=== PATIENT | female | born 1945 | race Caucasian/White ===

== ENCOUNTER 2018-03-20 08:52 | Inpatient (IN) | payer MEDICARE ==
--- NOTE | 2018-03-19 23:00 | Pre-op HX & Phy Repo 2 SIG ---
DATE OF ADMISSION: 03/20/2018 ANTICIPATED DATE OF ADMISSION: 03/20/2018 HISTORY OF PRESENT ILLNESS: The patient is a 72-year-old female in fair but stable health with a malfunctioning Gandhi continent intestinal reservoir continent ileostomy. She has recent difficulty with intubation because her stoma has become very small with only a small slip. A month ago, she had bleeding for 2 days after struggling to get her 30-Serbian intubation catheter into the stoma but that resolved. The patient feels her stoma may have retracted partially. She is scheduled to undergo endoscopy of her Gandhi pouch followed by surgical stoma revision as warranted. PAST MEDICAL HISTORY: The patient has multiple medical problems including insulin-dependent diabetes mellitus, hypertension, atrial fibrillation chronic, coronary artery disease, hypothyroidism, sclerosing cholangitis. MEDICATIONS: Lantus insulin 17 to 24 units per day, Humulin R 3 to 15 units per day, Synthroid 175 micrograms, Prilosec 20 milligrams, atenolol 50 milligrams, low-dose aspirin 81 milligrams discontinued preop, iron 27 milligrams, Zetia 10 milligrams, nitroglycerin 0.4 milligrams sublingual as needed for chest pain, Ambien 10 milligrams, Lofibra 54 milligrams. ALLERGIES TO MEDICATIONS: Statins, quinine, surgical tape. PAST SURGICAL HISTORY: Tonsillectomy, thyroidectomy in 1964, proctocolectomy with Kelsey ileostomy in 1970, continent ileostomy in 1990, liver biopsy in 1995, double cardiac bypass graft in 1996, and many ERCP procedures for periodic stent replacements and removals. PHYSICAL EXAMINATION: The patient is arriving from out of town, will be examined upon arrival, and dictated separately. IMPRESSION: 1. Malfunctioning Gandhi continent ileostomy with stoma stenosis. 2. History of ulcerative colitis. 3. Status post proctocolectomy and ileostomy in 1970. 4. Status post Gandhi continent ileostomy in 1990. 5. Status post laparotomy with complex revision of Gandhi pouch stoma and access segment for redundant access segment in 2006. 6. Coronary artery disease. 7. Diabetes mellitus, insulin dependent. 8. Chronic atrial fibrillation. 9. Sclerosing cholangitis. DISCUSSION: I have had a full discussion with the patient regarding her condition and the plan for pouch endoscopy, which does not require any anesthesia or sedation. Hopefully, laparotomy can be avoided in view of her multiple comorbidities and the findings at the last surgery of extensive adhesions with the pouch densely adherent into the pelvis. Hopefully, whatever requires surgical revision to be done as a stoma revision superficially in the abdominal wall. I will have a full discussion in person with the patient when she arrives from out of town. Joss Ha M.D. DR: Pavan JOB#: [id number] CC:
[~2018-03-20] VITALS: Ht 165.1 cm; Wt 68.0 kg
[2018-03-20 09:30] VITALS: BP 143/62
[2018-03-20 10:58] LABS: BASOPHILS % (AUTO) 0.6 % (0.0-2.0); EOSINOPHILS % (AUTO) 1.5 % (0.0-3.0); HEMATOCRIT 33.4 % (37.0-47.0); LYMPHOCYTES % (AUTO) 11.7 % (20.0-45.0); MEAN CORPUSCULAR VOLUME 84 FL (80-99); MONOCYTES % (AUTO) 6.9 % (1.0-10.0); NEUTROPHILS % (AUTO) 79.2 % (45.0-75.0); PLATELET COUNT 271 K/UL (150-450); RED BLOOD COUNT 3.97 M/UL (4.20-5.40); RED CELL DISTRIBUTION WIDTH 11.4 % (11.6-14.8); WHITE BLOOD COUNT 9.9 K/UL (4.8-10.8)
[2018-03-20 11:09] LABS: ANION GAP 9 mmol/L (5-15); BLOOD UREA NITROGEN 16 mg/dL (7-18); CALCIUM 8.8 MG/DL (8.5-10.1); CARBON DIOXIDE 26 MMOL/L (21-32); CHLORIDE 95 MMOL/L (98-107); CREATININE 1.6 MG/DL (0.55-1.30); POTASSIUM 4.2 MMOL/L (3.5-5.1); SODIUM 130 MMOL/L (136-145)
[2018-03-20 11:13] LABS: INR 1.4 (0.9-1.1)
[2018-03-20 11:15] LABS: ALANINE AMINOTRANSFERASE 26 U/L (12-78); ALBUMIN 3.4 G/DL (3.4-5.0); ALBUMIN/GLOBULIN RATIO 0.9 (1.0-2.7); ALKALINE PHOSPHATASE 105 U/L (46-116); ASPARTATE AMINO TRANSFERASE 22 U/L (15-37); BILIRUBIN,TOTAL 0.8 MG/DL (0.2-1.0)
--- NOTE | 2018-03-20 11:22 | Diagnostic Imaging Report ---
Indication: Cough Technique: One view of the chest Comparison: none Findings: Lungs and pleural spaces are clear. There is evidence of prior median sternotomy. The heart is upper limits normal in size Impression: No acute process
[2018-03-20 12:00] VITALS: BP 132/69
[2018-03-20] MEDS ORDERED: Neomycin Sulfate 500mg Tab ORAL SCH (12:00)
[2018-03-20] MEDS ORDERED: Heparin 2000 units/Ns 1000ml INJ PRN (13:00)
[2018-03-20] MEDS ORDERED: Lidocaine 1% Plain 30 ml INJ PRN (13:00)
[2018-03-20] MEDS: NovoLOG Insulin Flexpen SUBQ SCH ×5 (13:06→21:41)
--- NOTE | 2018-03-20 13:23 | Pre-Procedure Note/Attestation ---
Pre-Procedure Note/Attestation Complete Prior to Procedure Planned Procedure: not applicable Procedure Narrative: Gandhi continent ileostomy pouch endoscopy Indications for Procedure Pre-Operative Diagnosis: malfunctioning Gandhi pouch with stoma stenosis Attestation I attest that I discussed the nature of the procedure; its benefits; risks and complications; and alternatives (and the risks and benefits of such alternatives ), prior to the procedure, with the patient (or the patient's legal customer support representative). I attest that, if there was a reasonable possibility of needing a blood transfusion, the patient (or the patient's legal customer support representative) was given the [facility] standardized written summary, pursuant to the Lai Fiona Blood Safety Act ([place] Health and Safety Code # 1645, as amended). I attest that I re-evaluated the patient just prior to the surgery and that there has been no change in the patient's H&P, except as documented below: none Joss Ha MD Mar 20, 2018 13:23
[2018-03-20 13:46] LABS: APPEARANCE,URINE CLEAR; BILIRUBIN, URINE NEGATIVE (NEGATIVE); COLOR,URINE PALE YELLOW; GLUCOSE, URINE (UA) 2+ (NEGATIVE); KETONES,URINE NEGATIVE (NEGATIVE); LEUKOCYTE ESTERASE ,URINE NEGATIVE (NEGATIVE); NITRITE,URINE NEGATIVE (NEGATIVE); PH,URINE 6 (4.5-8.0); PROTEIN,URINE 1+ (NEGATIVE); UROBILINOGEN,URINE NORMAL MG/DL (0.0-1.0)
--- NOTE | 2018-03-20 13:59 | Brief Operative Note ---
Immediate Post Operative Note Operative Note Pre-op Diagnosis: malfunctioning Gandhi pouch with stoma stenosis Procedure: Gandhi continent ileostomy pouch endoscopy Post-op Diagnosis: Angulation of access segment Post-op Diagnosis: same as pre-op plus - no stoma stenosis, access segment angulation Findings: consistent w/pre-op dx studies Surgeon: carson Anesthesiologist: none Anesthesia: other - none Specimen: none Complications: none Condition: stable Fluids: none Estimated Blood Loss: none Drains: other - 28 Ornelas to BCIR Implant(s) used?: No Joss Ha MD Mar 20, 2018 13:59
--- NOTE | 2018-03-20 14:06 | General Progress Note ---
Progress Note Progress Note H&P dictated. Patient having occasional difficulty intubating her Gandhi Pouch with one episode bleeding one month ago. Abdomen quite distended but not tympanitic BCIR pouch stoma not stenotic, well formed. Peristoma skin chronic changes wide area probably vascular Pouch endoscopy reveals a mild angulation at 7-8cm deep to the stoma with normal pouch and well formed valve WBC 9900 Hgb 11 Na 130 BUN 16 Cr 1.6 Albumin 3.4 INR 1.4 Imp. Hyponatremia with mild dehydration Malfunctioning Gandhi continent ileostomy with difficulty intubating Abdominal distention Chronic peristomal skin changes Likely Vitamin K deficiency with prolonged INR Plan; IV fluids with NS Continuous drainage of Gandhi pouch Vit. K 10mg IV May need CT scan to evaluate abdominal distention f/u labs cancel surgery scheduled for tomorrow Joss Almaraz MD Mar 20, 2018 14:06
[2018-03-20] MEDS ORDERED: PHYTONADIONE IVPB ONE (15:30)
[2018-03-20] MEDS ORDERED: D5W IVPB ONE (15:30)
[2018-03-20] MEDS: NS w/KCl 20mEq 1,000 ML IV SCH (15:33)
[2018-03-20 16:00] VITALS: BP 118/61
--- NOTE | 2018-03-20 16:45 | Procedure Note ---
DATE OF PROCEDURE: 03/20/2018 ENDOSCOPIST: Joss Ha M.D. ANESTHESIA: None. SEDATION: None. PRE-ENDOSCOPIC DIAGNOSES: 1. Malfunctioning Gandhi continent ileostomy with difficulty with intubation and prior episode of bleeding. 2. History of ulcerative colitis. 3. Status post multiple abdominal operations. 3.1. Proctocolectomy and ileostomy in 1970. 3.2. Gandhi continent ileostomy in 1990. 3.3. Laparotomy with complex revision of Gandhi pouch stoma and access segment for redundant access segment in 2006. 3.4. Chronic peristomal skin changes. POST-ENDOSCOPIC DIAGNOSES: 1. Malfunctioning Gandhi continent ileostomy with difficulty with intubation and prior episode of bleeding. 2. History of ulcerative colitis. 3. Status post multiple abdominal operations. 3.1. Proctocolectomy and ileostomy in 1970. 3.2. Gandhi continent ileostomy in 1990. 3.3. Laparotomy with complex revision of Gandhi pouch stoma and access segment for redundant access segment in 2006. 3.4. Chronic peristomal skin changes. ENDOSCOPY PERFORMED: Gandhi continent ileostomy pouch endoscopy. FINDINGS: Mild angulation at 7 to 8 cm deep to the stoma with a distance to the tip of the valve approximately 10 cm. The pouch and valve appeared normal. There are chronic peristomal skin changes likely vascular in nature. DESCRIPTION OF PROCEDURE: The patient was positioned supine in the GI lab and first examined. She is 5 feet 5 inches, 150 pounds. HEENT within normal limits. Lungs clear. Heart, chronic atrial fibrillation. Breasts without masses. Abdomen is soft, but quite distended or protuberant, but not tympanitic, well-healed surgical scars. Stoma of the Gandhi continent ileostomy pouch is low in the right lower quadrant and has no stenosis. There is a wide area circumferentially of peristomal skin changes with some tenderness consistent with chronic vascular changes around the stoma area. Pelvic per primary care physician. Rectal, status post proctectomy. Extremities without edema. Neurologic, physiologic. I first inserted a 28-Kittitian Ornelas catheter into the stoma, but met resistance and removed it and was able to insert a 26-Kittitian Ornelas. Once I waited a few seconds at the point of resistance for spasm to resolve, the catheter entered readily. The pouch was lavaged clear. Using a GIF-P140 endoscope, the stoma was entered under direct vision. There was sign of catheter trauma near the mild angulation, but the pouch could be readily entered. The pouch was distensible and completely normal mucosa throughout retroflexed views revealed a circumferentially well-formed nipple valve. The patient is not having any incontinence. She intubates four times a day. Withdrawal views confirmed the above findings. After the procedure, I was fairly readily able to insert a 28-Kittitian Ornelas catheter into the pouch and connected to gravity drainage bag and secured it with tape and placed a dry dressing over the stoma. The patient tolerated the procedure well, and based on the endoscopy, there is no need for surgical revision at this time. Joss Ha M.D. DR: TRISHA JOB#: [id number] CC:
[2018-03-20] MEDS ORDERED: ASPIRIN81 M3 PO (16:49)
[2018-03-20] MEDS ORDERED: HUMULIN R100 UNIT/1 SUBQ (16:49)
[2018-03-20] MEDS ORDERED: CENTRUM SILVER1 EAC4 PO (16:49)
[2018-03-20] MEDS ORDERED: REGLAN10 MG ORAL (16:49)
[2018-03-20] MEDS ORDERED: ZETIA10 MG ORAL (16:49)
[2018-03-20] MEDS ORDERED: AMBIEN10 M1 ORAL (16:49)
[2018-03-20] MEDS ORDERED: FENOFIBRATE54 MG ORAL (16:49)
[2018-03-20] MEDS ORDERED: ATENOLOL50 MG ORAL (16:49)
[2018-03-20] MEDS ORDERED: IRON325 M1 PO (16:49)
[2018-03-20] MEDS ORDERED: LANTUS5 UNITS SUBQ (16:49)
[2018-03-20] MEDS ORDERED: SYNTHROID200 MCG ORAL (16:49)
[2018-03-20] MEDS ORDERED: OMEPRAZOLE20 M2 ORAL (16:49)
[2018-03-20] MEDS ORDERED: DiphenhydrAMINE 50mg/ml Inj IVP ONE (17:30)
[2018-03-20] MEDS ORDERED: D5 1/2NS w/KCl 20mEq 1,000 ML IV SCH (18:00)
[2018-03-20] MEDS ORDERED: NS w/KCl 20mEq 1,000 ML IV SCH (18:00)
[2018-03-20] MEDS ORDERED: Dyna-Hex 2% Top Sol 2oz TOPIC SCH (20:00)
[2018-03-20 20:22] VITALS: BP 151/57
[2018-03-20] MEDS ORDERED: Levemir Flexpen SUBQ SCH (21:00)
[2018-03-20] MEDS: Zolpidem 5mg tab ORAL PRN (21:48)
[2018-03-21] MEDS ORDERED: Ampicillin/Sulbactam Sod 3 GM in NS 110 ML IVPB SCH ×2
[2018-03-21 00:04] VITALS: BP 137/62
--- NOTE | 2018-03-21 02:00 | Consultation ---
DATE OF CONSULTATION: 03/20/2018 ENDOCRINOLOGY CONSULTATION CONSULTING PHYSICIAN: Eleazar Camarena M.D. REFERRING PHYSICIAN: Joss Ha M.D. REASON FOR CONSULTATION: Diabetes management. HISTORY OF PRESENT ILLNESS: The patient is a 72-year-old female with history of insulin-dependent diabetes. She was electively admitted to the hospital due to recent difficulty with intubation of her stoma which has become very small and only a small slit. The patient has history of malfunctioning Gandhi continent intestinal reservoir continent ileostomy. The patient is scheduled to have a CT of the abdomen tomorrow. She is on a clear liquid diet today and she is on insulin regimen as an outpatient. MEDICATION: Medications as an outpatient: 1. Lantus insulin 17 to 24 units at night. 2. Regular insulin 3 to 15 units per day. 3. Synthroid 225 mcg daily. 4. Prilosec. 5. Atenolol 50 mg daily. 6. Enteric-coated aspirin 81 mg daily, which is on hold. 7. Iron. 8. Zetia 10 mg daily. 9. Nitroglycerin sublingual as needed for chest pain. 10. Ambien 10 mg at bedtime. 11. Lofibra 54 mg at bedtime. PAST MEDICAL HISTORY: 1. Colitis. 2. Sclerosing cholangitis. 3. Insulin-dependent diabetes. 4. Hypertension. 5. Congestive heart failure. 6. Atrial fibrillation, chronic. 7. Coronary artery disease. PAST SURGICAL HISTORY: 1. Tonsillectomy. 2. Thyroidectomy in 1964. 3. Proctocolectomy with loop ileostomy in 1970. 4. Constant ileostomy in 1990. 5. Liver biopsy in 1995. 6. Coronary artery bypass graft in 1996. 7. ERCP procedures with stent placement and removals. FAMILY HISTORY: Dad was diabetic. SOCIAL HISTORY: No smoking, alcohol, or drug use. She lives in [place]. REVIEW OF SYSTEMS: As per history of present illness. PHYSICAL EXAMINATION: GENERAL: She is awake and alert. VITAL SIGNS: Blood pressure is 118/61, pulse 61, temperature 97.6, and respiratory rate of 20. HEENT: Pupils are equal and reactive to light. Sclerae are anicteric. NECK: No JVD. No thyromegaly. No bruit. LUNGS: Clear. HEART: Regular rate and rhythm. ABDOMEN: Positive bowel sounds. Soft. EXTREMITIES: No clubbing, cyanosis, or edema. LABORATORY VALUES: Sodium 130, potassium 4.2, chloride 95, bicarbonate 26, BUN 16, creatinine 1.6, glucose 264, A1c of 7.3. DIAGNOSES: 1. Diabetes, out of control. 2. Hypothyroidism. PLAN: 1. Start Levemir 18 units at bedtime. 2. Start NovoLog 6 units before each meal. 3. Blood glucose monitoring before meals and at bedtime. 4. NovoLog sliding scale coverage before meals and at bedtime. 5. Check TSH and free T4. 6. Adjust thyroid hormone dosage if indicated. 7. I will follow the patient during the hospital stay. Thank you, Dr. Ha, for the courtesy of this consultation. Eleazar Camarena M.D. DR: Nate JOB#: [id number] CC: ALEX
[2018-03-21 04:00] VITALS: BP 132/69
[2018-03-21] MEDS: NS w/KCl 20mEq 1,000 ML IV SCH ×2 (05:46→17:26)
[2018-03-21] MEDS: Levothyroxine 125mcg tab ORAL SCH (06:15)
[2018-03-21] MEDS: NovoLOG Insulin Flexpen SUBQ SCH ×7 (06:19→21:09)
--- NOTE | 2018-03-21 07:25 | General Progress Note ---
Assessment/Plan Problem List: (1) Hypothyroidism ICD Codes: E03.9 - Hypothyroidism, unspecified SNOMED: 50696328 (2) Diabetes mellitus out of control ICD Codes: E11.65 - Type 2 diabetes mellitus with hyperglycemia SNOMED: 12378250, 514971322 Assessment/Plan reduce Levemir to 12 units qhs reduce Novolog to 4 units ac tid + NISS TSH is at target - continue Levothyroxine 225 mcg daily Subjective Allergies: Coded Allergies: ROSUVASTATIN (Verified Allergy, Severe, 03/20/18) Nausea and vomiting [id number] REDUCTASE INHIBITOR (Verified Allergy, Intermediate, ) Nause vomiting, dehydration QUININE (Verified Allergy, Unknown, 03/20/18) Vomiting & dehydration Uncoded Allergies: surgical Tape (Allergy, Severe, Itching, 03/20/18) Sever itching & blisters zostril (Allergy, Intermediate, 03/20/18) nausea Vomiting All Systems: reviewed and negative except above Subjective hypoglycemia this morning Objective Last 24 Hour Vital Signs Date Time Temp Pulse Resp B/P (MAP) Pulse Ox O2 Delivery O2 Flow Rate FiO2 03/21/18 04:00 98.3 70 18 132/69 97 Room Air 98.3 03/21/18 00:04 98.4 76 17 137/62 97 98.4 03/21/18 00:00 97 Room Air 03/20/18 20:22 98.6 73 18 151/57 96 98.6 03/20/18 20:16 62 118/61 03/20/18 20:00 96 Room Air 03/20/18 16:00 97.6 62 20 118/61 97 Room Air 97.6 03/20/18 12:00 98.2 74 20 132/69 97 Room Air 98.2 03/20/18 09:30 97.7 71 20 143/62 97 Room Air 97.7 Intake and Output 03/20/18 03/21/18 19:00 07:00 Intake Total 875 ml 750 ml Output Total 1285 ml 1170 ml Balance -410 ml -420 ml Intake Oral 800 ml IV Total 75 ml 750 ml Output Urine Total 900 ml 900 ml Other 385 ml 270 ml Laboratory Tests 03/20/18 10:35: White Blood Count 9.9, Red Blood Count 3.97L, Hemoglobin 11.0L, Hematocrit 33.4L , Mean Corpuscular Volume 84, Mean Corpuscular Hemoglobin 27.7, Mean Corpuscular Hemoglobin Concent 32.9, Red Cell Distribution Width 11.4L, Platelet Count 271, Mean Platelet Volume 6.3L, Neutrophils (%) (Auto) 79.2H, Lymphocytes (%) (Auto) 11.7L, Monocytes (%) (Auto) 6.9, Eosinophils (%) (Auto) 1.5, Basophils (%) (Auto) 0.6, Prothrombin Time 14.3H, Prothromb Time International Ratio 1.4H, Activated Partial Thromboplast Time 44H, Sodium Level 130L, Potassium Level 4.2, Chloride Level 95L, Carbon Dioxide Level 26, Anion Gap 9, Blood Urea Nitrogen 16, Creatinine 1.6H, Estimat Glomerular Filtration Rate 31.8, Glucose Level 264H, Hemoglobin A1c 7.3H, Calcium Level 8.8, Total Bilirubin 0.8, Aspartate Amino Transf (AST/SGOT) 22, Alanine Aminotransferase ( ALT/SGPT) 26, Alkaline Phosphatase 105, Total Protein 7.4, Albumin 3.4, Globulin 4.0, Albumin/Globulin Ratio 0.9L, Thyroid Stimulating Hormone (TSH) 0.674, Free Thyroxine 1.45 03/20/18 13:15: Urine Color Pale yellow, Urine Appearance Clear, Urine pH 6, Urine Specific [place] 1.010, Urine Protein 1+H, Urine Glucose (UA) 2+H, Urine Ketones Negative , Urine Occult Blood Negative, Urine Nitrite Negative, Urine Bilirubin Negative , Urine Urobilinogen Normal, Urine Leukocyte Esterase Negative, Urine RBC 0-2, Urine WBC 0-2, Urine Squamous Epithelial Cells Occasional, Urine Bacteria Occasional Height (Feet): 5 Height (Inches): 5.00 Weight (Pounds): 150 General Appearance: no apparent distress Neck: normal alignment Cardiovascular: normal rate Respiratory/Chest: lungs clear Abdomen: normal bowel sounds Objective Current Medications Medications (Trade) Dose Ordered Sig/Konstantin Route PRN Reason Start Time Stop Time Status Last Admin Dose Admin Atenolol (Tenormin) 50 mg Q12HR ORAL 03/20/18 21:00 04/19/18 17:59 03/20/18 20:16 Dextrose (Dextrose 50%) 25 ml STAT PRN IV Hypoglycemia 03/20/18 10:45 04/19/18 10:44 Dextrose (Dextrose 50%) 50 ml STAT PRN IV Hypoglycemia 03/20/18 10:45 04/19/18 10:44 Insulin Aspart (NovoLOG) BEFORE MEALS AND HS SUBQ 03/20/18 11:30 04/19/18 11:29 03/20/18 21:41 Insulin Aspart (NovoLOG) 6 units NOVOTIAC SUBQ 03/20/18 11:50 04/19/18 11:49 03/20/18 13:07 Insulin Detemir (Levemir) 18 units BEDTIME SUBQ 03/20/18 21:00 04/19/18 20:59 03/20/18 21:40 Levothyroxine Sodium (Synthroid) 100 mcg DAILY@0630 ORAL 03/21/18 06:30 04/20/18 06:29 03/21/18 06:15 Levothyroxine Sodium (Synthroid) 125 mcg DAILY@0630 ORAL 03/21/18 06:30 04/20/18 06:29 03/21/18 06:15 Metoclopramide HCl (Reglan) 10 mg Q12HR ORAL 03/20/18 21:00 04/19/18 17:59 03/20/18 20:16 Ondansetron HCl (Zofran) 4 mg Q4H PRN IVP Nausea & Vomiting 03/20/18 10:30 04/19/18 10:29 Pantoprazole (Protonix) 40 mg Q12HR ORAL 03/20/18 21:00 04/19/18 17:59 03/20/18 20:16 Sodium Chloride 1,000 ml @ 75 mls/hr [id number] IV 03/20/18 15:00 04/19/18 14:59 03/21/18 05:46 Zolpidem Tartrate (Ambien) 5 mg HSPRN PRN ORAL Insomnia 03/20/18 17:00 03/27/18 16:59 03/20/18 21:48 Item Value Date Time Bedside Blood Glucose 86 mg/dl 03/21/18 0645 Bedside Blood Glucose 159 mg/dl H 03/20/18 2143 Bedside Blood Glucose 105 mg/dl 03/20/18 1730 Bedside Blood Glucose 265 mg/dl H 03/20/18 1307 Eleazar Camarena MD Mar 21, 2018 07:25
[2018-03-21 07:52] LABS: BASOPHILS % (AUTO) 1.5 % (0.0-2.0); EOSINOPHILS % (AUTO) 5.5 % (0.0-3.0); HEMATOCRIT 32.3 % (37.0-47.0); HEMOGLOBIN 11.2 G/DL (12.0-16.0); LYMPHOCYTES % (AUTO) 14.2 % (20.0-45.0); MEAN CORPUSCULAR VOLUME 84 FL (80-99); MONOCYTES % (AUTO) 7.5 % (1.0-10.0); NEUTROPHILS % (AUTO) 71.2 % (45.0-75.0); PLATELET COUNT 253 K/UL (150-450); RED BLOOD COUNT 3.86 M/UL (4.20-5.40); RED CELL DISTRIBUTION WIDTH 11.5 % (11.6-14.8); WHITE BLOOD COUNT 6.7 K/UL (4.8-10.8)
[2018-03-21 08:00] VITALS: BP 130/71
[2018-03-21 08:15] LABS: INR 1.3 (0.9-1.1)
--- NOTE | 2018-03-21 08:39 | General Progress Note ---
Progress Note Progress Note AVSS Patient feels okay on clear liquid diet Abdomen still distended vs. protruberant, soft, non-tender Urine 1800 BCIR ileo 655 WBC 6700 Hgb 11.2 CMP still pending Imp. Abdominal distention ? etiology Hyponatremia - f/u labs still pending Plan: STAT CT scan of abdomen and pelvis with oral and IV contrast Joss Ha MD Mar 21, 2018 08:39
[2018-03-21 08:51] LABS: ALANINE AMINOTRANSFERASE 24 U/L (12-78); ALBUMIN 3.1 G/DL (3.4-5.0); ALBUMIN/GLOBULIN RATIO 0.8 (1.0-2.7); ALKALINE PHOSPHATASE 100 U/L (46-116); ANION GAP 11 mmol/L (5-15); ASPARTATE AMINO TRANSFERASE 24 U/L (15-37); BILIRUBIN,TOTAL 0.7 MG/DL (0.2-1.0); BLOOD UREA NITROGEN 9 mg/dL (7-18); CALCIUM 8.7 MG/DL (8.5-10.1); CARBON DIOXIDE 23 MMOL/L (21-32); CHLORIDE 101 MMOL/L (98-107); CREATININE 1.3 MG/DL (0.55-1.30); POTASSIUM 3.8 MMOL/L (3.5-5.1); SODIUM 134 MMOL/L (136-145)
[2018-03-21 12:00] VITALS: BP 129/75
--- NOTE | 2018-03-21 12:40 | Diagnostic Imaging Report ---
Indication: Abdominal pain Technique: Continuous helical transaxial imaging of the abdomen and pelvis was obtained from the lung bases to the pubic symphysis during intravenous contrast administration. Coronal 2-D reformats were also obtained. Study obtained in a Siemens sensation [address] Automatic Exposure Control was utilized. Total Dose length Product (DLP): 713.[address] Dose Index Volume (CTDIvol): 13.68 mGy Comparison: None Findings: There is mild basilar atelectasis demonstrated. Aorta is mildly calcified. The liver and spleen are unremarkable. Gallbladder is distended. There is slight nodularity of the wall which may be partially calcified. There is no hydronephrosis. There is a small right renal cyst. There is a punctate calcification in the left kidney consistent with a nonobstructive stone. Pancreas and adrenal glands are unremarkable. There is a catheter entering the right lower quadrant of the abdomen consistent with a continent ileostomy. There is contrast material within the ileostomy as well as the catheter lumen. There is no evidence of bowel obstruction. No free air or free fluid identified. No inflammatory changes identified. Total colectomy noted. Urinary bladder is unremarkable. The uterus is atrophic but identified. Just posterior to the uterus there is a presacral well-circumscribed cystic lesion measuring 6.5 x 4.3 x 5.0 cm. This is most likely an ovarian cyst. IMPRESSION: Continent ileostomy noted. No complications such as bowel obstruction or leak identified. 6.5 x 4.3 x 5 cm well-circumscribed cyst posterior pelvic region most likely ovarian cyst. Comparison with prior studies is suggested with possible. Sonographic correlation suggested. Atherosclerotic disease. Slight nodularity of the gallbladder wall with suggestion of a calcification. Findings probably indicative of cholesterolosis of the gallbladder. Basilar atelectasis. Small right renal cyst. Tiny nonobstructive stone in the left kidney. The CT scanner at [facility] is accredited by the [employer] and the scans are performed using dose optimization techniques as appropriate to a performed exam including Automatic Exposure control.
[2018-03-21 16:00] VITALS: BP 131/70
[2018-03-21 20:00] VITALS: BP 139/59
[2018-03-21] MEDS ORDERED: Levemir Flexpen SUBQ SCH (21:00)
[2018-03-21] MEDS: Zolpidem 5mg tab ORAL PRN (21:49)
[2018-03-22] VITALS: BP 122/54
[2018-03-22 03:49] VITALS: BP 115/51
[2018-03-22 05:10] LABS: BASOPHILS % (AUTO) 0.9 % (0.0-2.0); EOSINOPHILS % (AUTO) 3.6 % (0.0-3.0); HEMATOCRIT 31.5 % (37.0-47.0); HEMOGLOBIN 10.8 G/DL (12.0-16.0); LYMPHOCYTES % (AUTO) 10.5 % (20.0-45.0); MEAN CORPUSCULAR VOLUME 83 FL (80-99); MONOCYTES % (AUTO) 8.3 % (1.0-10.0); NEUTROPHILS % (AUTO) 76.7 % (45.0-75.0); PLATELET COUNT 239 K/UL (150-450); RED BLOOD COUNT 3.77 M/UL (4.20-5.40); RED CELL DISTRIBUTION WIDTH 11.4 % (11.6-14.8); WHITE BLOOD COUNT 8.8 K/UL (4.8-10.8)
[2018-03-22 05:48] LABS: ANION GAP 8 mmol/L (5-15); BLOOD UREA NITROGEN 11 mg/dL (7-18); CALCIUM 8.8 MG/DL (8.5-10.1); CARBON DIOXIDE 24 MMOL/L (21-32); CHLORIDE 100 MMOL/L (98-107); CREATININE 1.4 MG/DL (0.55-1.30); POTASSIUM 3.8 MMOL/L (3.5-5.1); SODIUM 132 MMOL/L (136-145)
[2018-03-22] MEDS: Levothyroxine 125mcg tab ORAL SCH (05:58)
[2018-03-22] MEDS: NovoLOG Insulin Flexpen SUBQ SCH ×7 (06:00→21:55)
[2018-03-22] MEDS: NS w/KCl 20mEq 1,000 ML IV SCH (06:02)
--- NOTE | 2018-03-22 06:49 | General Progress Note ---
Progress Note Progress Note Doing well with BCIR diet and indwelling BCIR catheter. Abdomen soft Na still low 132 BUN 11 Cr 1.4 Imp. Improving Plan: Begin RN supervised BCIR self-intubations q3h am to hs and prn continue NS IV to correct low sodium level Joss Ha MD Mar 22, 2018 06:49
[2018-03-22 08:00] VITALS: BP 132/64
--- NOTE | 2018-03-22 09:04 | General Progress Note ---
Assessment/Plan Problem List: (1) Hypothyroidism ICD Codes: E03.9 - Hypothyroidism, unspecified SNOMED: 33103652 (2) Diabetes mellitus out of control ICD Codes: E11.65 - Type 2 diabetes mellitus with hyperglycemia SNOMED: 41643287, [id number] Assessment/Plan reduce Levemir to 8 units qhs reduce Novolog to 4 units ac tid + NISS TSH is at target - continue Levothyroxine 225 mcg daily Subjective Allergies: Coded Allergies: ROSUVASTATIN (Verified Allergy, Severe, 03/20/18) Nausea and vomiting [id number] REDUCTASE INHIBITOR (Verified Allergy, Intermediate, ) Nause vomiting, dehydration QUININE (Verified Allergy, Unknown, 03/20/18) Vomiting & dehydration Uncoded Allergies: surgical Tape (Allergy, Severe, Itching, 03/20/18) Sever itching & blisters zostril (Allergy, Intermediate, 03/20/18) nausea Vomiting All Systems: reviewed and negative except above Subjective hypoglycemia repeated this morning Objective Last 24 Hour Vital Signs Date Time Temp Pulse Resp B/P (MAP) Pulse Ox O2 Delivery O2 Flow Rate FiO2 03/22/18 08:10 80 132/64 03/22/18 08:00 97.5 80 16 132/64 100 Room Air 97.5 03/22/18 03:49 97.2 64 19 115/51 97 Room Air 97.2 03/22/18 00:00 97.9 67 19 122/54 97 Room Air 97.9 03/21/18 21:04 69 139/59 03/21/18 20:00 98.1 69 19 139/59 97 Room Air 98.1 03/21/18 16:00 98.0 76 20 131/70 97 Room Air 98.0 03/21/18 12:00 98.2 73 18 129/75 96 Room Air 98.2 03/21/18 09:25 73 130/71 Intake and Output 03/21/18 03/22/18 19:00 07:00 Intake Total 1675 ml 675 ml Output Total 3345 ml 2020 ml Balance -1670 ml -1345 ml Intake Oral 1600 ml IV Total 75 ml 675 ml Output Urine Total 1750 ml 1500 ml Other 1595 ml 520 ml Laboratory Tests 03/22/18 05:00: White Blood Count 8.8, Red Blood Count 3.77L, Hemoglobin 10.8L, Hematocrit 31.5L , Mean Corpuscular Volume 83, Mean Corpuscular Hemoglobin 28.5, Mean Corpuscular Hemoglobin Concent 34.2, Red Cell Distribution Width 11.4L, Platelet Count 239, Mean Platelet Volume 6.0L, Neutrophils (%) (Auto) 76.7H, Lymphocytes (%) (Auto) 10.5L, Monocytes (%) (Auto) 8.3, Eosinophils (%) (Auto) 3.6H, Basophils (%) (Auto) 0.9, Sodium Level 132L, Potassium Level 3.8, Chloride Level 100, Carbon Dioxide Level 24, Anion Gap 8, Blood Urea Nitrogen 11 , Creatinine 1.4H, Estimat Glomerular Filtration Rate 37.2, Glucose Level 51L, Calcium Level 8.8 Height (Feet): 5 Height (Inches): 5.00 Weight (Pounds): 150 General Appearance: no apparent distress Neck: normal alignment Cardiovascular: normal rate Respiratory/Chest: chest wall non-tender Abdomen: normal bowel sounds Pelvis: normal external exam Objective Current Medications Medications (Trade) Dose Ordered Sig/Konstantin Route PRN Reason Start Time Stop Time Status Last Admin Dose Admin Atenolol (Tenormin) 50 mg Q12HR ORAL 03/20/18 21:00 04/19/18 17:59 03/20/18 20:16 Dextrose (Dextrose 50%) 25 ml STAT PRN IV Hypoglycemia 03/20/18 10:45 04/19/18 10:44 Dextrose (Dextrose 50%) 50 ml STAT PRN IV Hypoglycemia 03/20/18 10:45 04/19/18 10:44 Insulin Aspart (NovoLOG) BEFORE MEALS AND HS SUBQ 03/20/18 11:30 04/19/18 11:29 03/20/18 21:41 Insulin Aspart (NovoLOG) 6 units NOVOTIAC SUBQ 03/20/18 11:50 04/19/18 11:49 03/20/18 13:07 Insulin Detemir (Levemir) 18 units BEDTIME SUBQ 03/20/18 21:00 04/19/18 20:59 03/20/18 21:40 Levothyroxine Sodium (Synthroid) 100 mcg DAILY@0630 ORAL 03/21/18 06:30 04/20/18 06:29 03/21/18 06:15 Levothyroxine Sodium (Synthroid) 125 mcg DAILY@0630 ORAL 03/21/18 06:30 04/20/18 06:29 03/21/18 06:15 Metoclopramide HCl (Reglan) 10 mg Q12HR ORAL 03/20/18 21:00 04/19/18 17:59 03/20/18 20:16 Ondansetron HCl (Zofran) 4 mg Q4H PRN IVP Nausea & Vomiting 03/20/18 10:30 04/19/18 10:29 Pantoprazole (Protonix) 40 mg Q12HR ORAL 03/20/18 21:00 04/19/18 17:59 03/20/18 20:16 Sodium Chloride 1,000 ml @ 75 mls/hr [id number] IV 03/20/18 15:00 04/19/18 14:59 03/21/18 05:46 Zolpidem Tartrate (Ambien) 5 mg HSPRN PRN ORAL Insomnia 03/20/18 17:00 03/27/18 16:59 03/20/18 21:48 Item Value Date Time Bedside Blood Glucose 86 mg/dl 03/21/18 0645 Bedside Blood Glucose 159 mg/dl H 03/20/18 2143 Bedside Blood Glucose 105 mg/dl 03/20/18 1730 Bedside Blood Glucose 265 mg/dl H 03/20/18 1307 Eleazar Camarena MD Mar 22, 2018 09:04
[2018-03-22 11:31] VITALS: BP 159/70
[2018-03-22 16:00] VITALS: BP 129/62
[2018-03-22] MEDS ORDERED: metroNIDAZOLE 500mg tab ORAL SCH (16:12)
--- NOTE | 2018-03-22 16:16 | General Progress Note ---
Progress Note Progress Note Has intubated twice without difficulty but large volume watery output and unable to wait 3 hours Imp. Pouchitis Plan; Flagyl 500mg po STAT then 250mg po TID including a dose tonight Increase IV fluids Joss Ha MD Mar 22, 2018 16:16
[2018-03-22] MEDS ORDERED: metroNIDAZOLE 250mg tab ORAL SCH ×2 (18:00→22:00)
[2018-03-22 20:00] VITALS: BP 137/58
[2018-03-22] MEDS ORDERED: Levemir Flexpen SUBQ SCH (21:00)
[2018-03-22] MEDS: Zolpidem 5mg tab ORAL PRN (21:50)
[2018-03-23] VITALS: BP 109/61
[2018-03-23] MEDS: NS w/KCl 20mEq 1,000 ML IV SCH ×2 (03:00→15:00)
[2018-03-23 04:00] VITALS: BP 141/70
[2018-03-23 05:35] LABS: BASOPHILS % (AUTO) 0.9 % (0.0-2.0); EOSINOPHILS % (AUTO) 3.5 % (0.0-3.0); HEMATOCRIT 31.7 % (37.0-47.0); HEMOGLOBIN 10.4 G/DL (12.0-16.0); LYMPHOCYTES % (AUTO) 11.1 % (20.0-45.0); MEAN CORPUSCULAR VOLUME 85 FL (80-99); MONOCYTES % (AUTO) 7.5 % (1.0-10.0); NEUTROPHILS % (AUTO) 77.1 % (45.0-75.0); PLATELET COUNT 247 K/UL (150-450); RED BLOOD COUNT 3.75 M/UL (4.20-5.40); WHITE BLOOD COUNT 11.8 K/UL (4.8-10.8)
[2018-03-23] MEDS: Levothyroxine 125mcg tab ORAL SCH (06:01)
[2018-03-23 06:03] LABS: ANION GAP 9 mmol/L (5-15); BLOOD UREA NITROGEN 12 mg/dL (7-18); CARBON DIOXIDE 22 MMOL/L (21-32); CHLORIDE 102 MMOL/L (98-107); CREATININE 1.4 MG/DL (0.55-1.30); POTASSIUM 4.5 MMOL/L (3.5-5.1); SODIUM 133 MMOL/L (136-145)
[2018-03-23] MEDS: NovoLOG Insulin Flexpen SUBQ SCH ×7 (06:03→21:31)
[2018-03-23 08:00] VITALS: BP 119/76
--- NOTE | 2018-03-23 08:11 | General Progress Note ---
Progress Note Progress Note AVSS Continues to intubate well but having high volume watery effluent from Kock pouch, and must intubate q3h even during the night Abdomen more distended and tympanic WBC 11,800 hgb 10.4 Na up 133 Imp. Pouchitis with high volume ileostomy output Plan; Add Cipro 500mg po q12h to Flagyl continue IV fluids Joss Ha MD Mar 23, 2018 08:11
[2018-03-23] MEDS ORDERED: Ciprofloxacin 500mg tab ORAL SCH (09:00)
[2018-03-23] MEDS: metroNIDAZOLE 250mg tab ORAL SCH ×3 (09:20→17:13)
[2018-03-23 12:00] VITALS: BP 140/81
[2018-03-23 16:00] VITALS: BP 96/62
--- NOTE | 2018-03-23 17:25 | General Progress Note ---
Assessment/Plan Problem List: (1) Hypothyroidism ICD Codes: E03.9 - Hypothyroidism, unspecified SNOMED: 84101067 (2) Diabetes mellitus out of control ICD Codes: E11.65 - Type 2 diabetes mellitus with hyperglycemia SNOMED: 58048827, 718100374 Assessment/Plan increase Levemir to 14 units qhs increase Novolog to 7 units ac tid + NISS TSH is at target - continue Levothyroxine 225 mcg daily Subjective Allergies: Coded Allergies: ROSUVASTATIN (Verified Allergy, Severe, 03/20/18) Nausea and vomiting [id number] REDUCTASE INHIBITOR (Verified Allergy, Intermediate, ) Nause vomiting, dehydration QUININE (Verified Allergy, Unknown, 03/20/18) Vomiting & dehydration Uncoded Allergies: surgical Tape (Allergy, Severe, Itching, 03/20/18) Sever itching & blisters zostril (Allergy, Intermediate, 03/20/18) nausea Vomiting All Systems: reviewed and negative except above Subjective glucose values are labile appetite is good Objective Last 24 Hour Vital Signs Date Time Temp Pulse Resp B/P (MAP) Pulse Ox O2 Delivery O2 Flow Rate FiO2 03/23/18 16:00 98.4 65 18 96/62 96 Room Air 98.4 03/23/18 12:00 98.7 84 16 140/81 93 Room Air 98.7 03/23/18 09:20 78 122/75 03/23/18 08:00 97.6 77 18 119/76 95 Room Air 97.6 03/23/18 04:00 97.6 70 17 141/70 94 Room Air 97.6 03/23/18 00:00 97.6 67 19 109/61 96 Room Air 97.6 03/22/18 21:51 74 137/58 03/22/18 20:00 97.7 74 18 137/58 95 Room Air 97.7 Intake and Output 03/22/18 03/23/18 19:00 07:00 Intake Total 1350 ml 1600 ml Output Total 3550 ml 2450 ml Balance -2200 ml -850 ml Intake Oral 800 ml 500 ml IV Total 550 ml 1100 ml Output Urine Total 2100 ml 1100 ml Other 1450 ml 1350 ml Laboratory Tests 03/23/18 05:00: White Blood Count 11.8H, Red Blood Count 3.75L, Hemoglobin 10.4L, Hematocrit 31.7L, Mean Corpuscular Volume 85, Mean Corpuscular Hemoglobin 27.9, Mean Corpuscular Hemoglobin Concent 32.9, Red Cell Distribution Width 12.0, Platelet Count 247, Mean Platelet Volume 6.6, Neutrophils (%) (Auto) 77.1H, Lymphocytes ( %) (Auto) 11.1L, Monocytes (%) (Auto) 7.5, Eosinophils (%) (Auto) 3.5H, Basophils (%) (Auto) 0.9, Sodium Level 133L, Potassium Level 4.5, Chloride Level 102, Carbon Dioxide Level 22, Anion Gap 9, Blood Urea Nitrogen 12, Creatinine 1.4H, Estimat Glomerular Filtration Rate 37.2, Glucose Level 307#H, Calcium Level 9.0 Height (Feet): 5 Height (Inches): 5.00 Weight (Pounds): 150 General Appearance: no apparent distress Neck: normal alignment Cardiovascular: normal rate Respiratory/Chest: lungs clear Abdomen: normal bowel sounds Edema: no edema noted Arm (L), no edema noted Arm (R), no edema noted Leg (L), no edema noted Leg (R), no edema noted Pedal (L), no edema noted Pedal (R), no edema noted Generalized Objective Current Medications Medications (Trade) Dose Ordered Sig/Konstantin Route PRN Reason Start Time Stop Time Status Last Admin Dose Admin Atenolol (Tenormin) 50 mg Q12HR ORAL 03/20/18 21:00 04/19/18 17:59 03/23/18 09:20 Ciprofloxacin (Cipro 500mg tab) 500 mg EVERY 12 HOURS ORAL 03/23/18 21:00 03/30/18 20:59 Dextrose (Dextrose 50%) 25 ml STAT PRN IV Hypoglycemia 03/20/18 10:45 04/19/18 10:44 Dextrose (Dextrose 50%) 50 ml STAT PRN IV Hypoglycemia 03/20/18 10:45 04/19/18 10:44 Ibuprofen (Advil) 200 mg Q4H PRN ORAL For Headache 03/21/18 16:03 04/20/18 16:02 03/21/18 16:20 Insulin Aspart (NovoLOG) BEFORE MEALS AND HS SUBQ 03/20/18 11:30 04/19/18 11:29 03/23/18 17:14 Insulin Aspart (NovoLOG) 4 units NOVOTIAC SUBQ 03/21/18 11:50 04/19/18 11:49 03/23/18 17:15 Insulin Detemir (Levemir) 8 units BEDTIME SUBQ 03/22/18 21:00 04/19/18 20:59 03/22/18 21:54 Levothyroxine Sodium (Synthroid) 100 mcg DAILY@0630 ORAL 03/21/18 06:30 04/20/18 06:29 03/23/18 06:01 Levothyroxine Sodium (Synthroid) 125 mcg DAILY@0630 ORAL 03/21/18 06:30 04/20/18 06:29 03/23/18 06:01 Metoclopramide HCl (Reglan) 10 mg Q12HR ORAL 03/20/18 21:00 04/19/18 17:59 03/23/18 09:20 Metronidazole (Flagyl) 250 mg TID ORAL 03/23/18 09:00 03/30/18 08:59 03/23/18 17:13 Ondansetron HCl (Zofran) 4 mg Q4H PRN IVP Nausea & Vomiting 03/20/18 10:30 04/19/18 10:29 Pantoprazole (Protonix) 40 mg Q12HR ORAL 03/20/18 21:00 04/19/18 17:59 03/23/18 09:20 Sodium Chloride 1,000 ml @ 100 mls/hr Q10H IV 03/23/18 15:00 04/22/18 14:59 03/23/18 03:00 Zolpidem Tartrate (Ambien) 5 mg HSPRN PRN ORAL Insomnia 03/20/18 17:00 03/27/18 16:59 03/22/18 21:50 Item Value Date Time Bedside Blood Glucose 79 mg/dl 03/22/18 0639 Bedside Blood Glucose 178 mg/dl H 03/21/18 2109 Bedside Blood Glucose 132 mg/dl H 03/21/18 1811 Bedside Blood Glucose 91 mg/dl 03/21/18 1150 Bedside Blood Glucose 86 mg/dl 03/21/18 0645 Bedside Blood Glucose 253 mg/dl H 03/23/18 1715 Bedside Blood Glucose 242 mg/dl H 03/23/18 1212 Bedside Blood Glucose 310 mg/dl H 03/23/18 0630 Eleazar Camarena MD Mar 23, 2018 17:25
[2018-03-23 20:00] VITALS: BP 127/84
[2018-03-23] MEDS ORDERED: Levemir Flexpen SUBQ SCH (21:00)
[2018-03-23] MEDS: Zolpidem 5mg tab ORAL PRN (21:25)
[2018-03-23] MEDS: Ciprofloxacin 500mg tab ORAL SCH (21:25)
[2018-03-24] VITALS: BP 119/59
[2018-03-24] MEDS: NS w/KCl 20mEq 1,000 ML IV SCH ×3 (01:08→21:18)
[2018-03-24 04:00] VITALS: BP 130/67
[2018-03-24 05:05] LABS: BASOPHILS % (AUTO) 0.8 % (0.0-2.0); EOSINOPHILS % (AUTO) 3.3 % (0.0-3.0); HEMATOCRIT 29.2 % (37.0-47.0); HEMOGLOBIN 10.3 G/DL (12.0-16.0); LYMPHOCYTES % (AUTO) 8.9 % (20.0-45.0); MEAN CORPUSCULAR VOLUME 84 FL (80-99); MONOCYTES % (AUTO) 7.8 % (1.0-10.0); NEUTROPHILS % (AUTO) 79.1 % (45.0-75.0); PLATELET COUNT 226 K/UL (150-450); RED BLOOD COUNT 3.46 M/UL (4.20-5.40); RED CELL DISTRIBUTION WIDTH 11.7 % (11.6-14.8); WHITE BLOOD COUNT 14.7 K/UL (4.8-10.8)
[2018-03-24 05:13] LABS: ANION GAP 9 mmol/L (5-15); BLOOD UREA NITROGEN 15 mg/dL (7-18); CARBON DIOXIDE 20 MMOL/L (21-32); CHLORIDE 103 MMOL/L (98-107); CREATININE 1.7 MG/DL (0.55-1.30); POTASSIUM 4.2 MMOL/L (3.5-5.1); SODIUM 132 MMOL/L (136-145)
[2018-03-24] MEDS: Levothyroxine 125mcg tab ORAL SCH (06:09)
[2018-03-24] MEDS: NovoLOG Insulin Flexpen SUBQ SCH ×7 (06:11→21:37)
[2018-03-24 08:00] VITALS: BP 128/66
--- NOTE | 2018-03-24 08:41 | General Progress Note ---
Progress Note Progress Note AVSS Finally able to go more than 3 hours between intubating BCIR. Output finally getting thicker Abdomen distended and tympanitic but soft, non-tender Urine 2300 BCIR fileo 1800 (only 500cc ovefrnight 12 hours) WBC up 14,700 Na down 132 Cr up 1.7 Imp: Pouchitis with negative fluid balance and leukocytosis - now on Cipro and Flagyl Plan: Continue IV fluids f/u labs in AM If outputs have normalized and labs improved in AM will discharge Joss Ha MD Mar 24, 2018 08:41
[2018-03-24] MEDS: metroNIDAZOLE 250mg tab ORAL SCH ×3 (09:08→17:46)
[2018-03-24] MEDS: Ciprofloxacin 500mg tab ORAL SCH ×2 (09:08→21:16)
[2018-03-24 12:00] VITALS: BP 142/65
--- NOTE | 2018-03-24 13:28 | General Progress Note ---
Assessment/Plan Problem List: (1) Hypothyroidism ICD Codes: E03.9 - Hypothyroidism, unspecified SNOMED: 35705529 (2) Diabetes mellitus out of control ICD Codes: E11.65 - Type 2 diabetes mellitus with hyperglycemia SNOMED: 79748361, [id number] Assessment/Plan increase Levemir to 16 units qhs continue Novolog 7 units ac tid + NISS TSH is at target - continue Levothyroxine 225 mcg daily Subjective Allergies: Coded Allergies: ROSUVASTATIN (Verified Allergy, Severe, 03/20/18) Nausea and vomiting [id number] REDUCTASE INHIBITOR (Verified Allergy, Intermediate, ) Nause vomiting, dehydration QUININE (Verified Allergy, Unknown, 03/20/18) Vomiting & dehydration Uncoded Allergies: surgical Tape (Allergy, Severe, Itching, 03/20/18) Sever itching & blisters zostril (Allergy, Intermediate, 03/20/18) nausea Vomiting All Systems: reviewed and negative except above Subjective events noted Objective Last 24 Hour Vital Signs Date Time Temp Pulse Resp B/P (MAP) Pulse Ox O2 Delivery O2 Flow Rate FiO2 03/24/18 12:00 98.1 89 20 142/65 95 Room Air 98.1 03/24/18 09:09 88 128/66 03/24/18 08:00 99.2 88 20 128/66 95 Room Air 99.2 03/24/18 04:00 98.4 88 18 130/67 94 Room Air 98.4 03/24/18 00:00 98.8 77 18 119/59 92 Room Air 98.8 03/23/18 21:27 72 127/84 03/23/18 20:00 97.5 72 18 127/84 99 Room Air 97.5 03/23/18 16:00 98.4 65 18 96/62 96 Room Air 98.4 Intake and Output 03/23/18 03/24/18 19:00 07:00 Intake Total 1000 ml 400 ml Output Total 2200 ml 1900 ml Balance -1200 ml -1500 ml Intake Oral 1000 ml 400 ml Output Urine Total 900 ml 1400 ml Other 1300 ml 500 ml # Voids 4 3 Laboratory Tests 03/24/18 03:25: Sodium Level 132L, Potassium Level 4.2, Chloride Level 103, Carbon Dioxide Level 20L, Anion Gap 9, Blood Urea Nitrogen 15, Creatinine 1.7H, Estimat Glomerular Filtration Rate 29.7, Glucose Level 205#H, Calcium Level 9.0 03/24/18 04:10: White Blood Count 14.7H, Red Blood Count 3.46L, Hemoglobin 10.3L, Hematocrit 29.2L, Mean Corpuscular Volume 84, Mean Corpuscular Hemoglobin 29.8, Mean Corpuscular Hemoglobin Concent 35.2, Red Cell Distribution Width 11.7, Platelet Count 226, Mean Platelet Volume 6.9, Neutrophils (%) (Auto) 79.1H, Lymphocytes ( %) (Auto) 8.9L, Monocytes (%) (Auto) 7.8, Eosinophils (%) (Auto) 3.3H, Basophils (%) (Auto) 0.8 Height (Feet): 5 Height (Inches): 5.00 Weight (Pounds): 150 General Appearance: no apparent distress Neck: normal alignment Cardiovascular: normal rate Respiratory/Chest: lungs clear Abdomen: normal bowel sounds Objective Current Medications Medications (Trade) Dose Ordered Sig/Konstantin Route PRN Reason Start Time Stop Time Status Last Admin Dose Admin Atenolol (Tenormin) 50 mg Q12HR ORAL 03/20/18 21:00 04/19/18 17:59 03/24/18 09:09 Ciprofloxacin (Cipro 500mg tab) 500 mg EVERY 12 HOURS ORAL 03/23/18 21:00 03/30/18 20:59 03/24/18 09:08 Dextrose (Dextrose 50%) 25 ml STAT PRN IV Hypoglycemia 03/20/18 10:45 04/19/18 10:44 Dextrose (Dextrose 50%) 50 ml STAT PRN IV Hypoglycemia 03/20/18 10:45 04/19/18 10:44 Ibuprofen (Advil) 200 mg Q4H PRN ORAL For Headache 03/21/18 16:03 04/20/18 16:02 03/21/18 16:20 Insulin Aspart (NovoLOG) BEFORE MEALS AND HS SUBQ 03/20/18 11:30 04/19/18 11:29 03/24/18 11:50 Insulin Aspart (NovoLOG) 7 units NOVOTIAC SUBQ 03/24/18 06:30 04/19/18 11:49 03/24/18 11:50 Insulin Detemir (Levemir) 14 units BEDTIME SUBQ 03/23/18 21:00 04/19/18 20:59 03/23/18 21:31 Levothyroxine Sodium (Synthroid) 100 mcg DAILY@0630 ORAL 03/21/18 06:30 04/20/18 06:29 03/24/18 06:09 Levothyroxine Sodium (Synthroid) 125 mcg DAILY@0630 ORAL 03/21/18 06:30 04/20/18 06:29 03/24/18 06:09 Metoclopramide HCl (Reglan) 10 mg Q12HR ORAL 03/20/18 21:00 04/19/18 17:59 03/24/18 09:08 Metronidazole (Flagyl) 250 mg TID ORAL 03/23/18 09:00 03/30/18 08:59 03/24/18 12:31 Ondansetron HCl (Zofran) 4 mg Q4H PRN IVP Nausea & Vomiting 03/20/18 10:30 04/19/18 10:29 Pantoprazole (Protonix) 40 mg Q12HR ORAL 03/20/18 21:00 04/19/18 17:59 03/24/18 09:09 Sodium Chloride 1,000 ml @ 100 mls/hr Q10H IV 03/23/18 15:00 04/22/18 14:59 03/24/18 11:19 Zolpidem Tartrate (Ambien) 5 mg HSPRN PRN ORAL Insomnia 03/20/18 17:00 03/27/18 16:59 03/23/18 21:25 Item Value Date Time Bedside Blood Glucose 223 mg/dl H 03/24/18 1150 Bedside Blood Glucose 242 mg/dl H 03/24/18 0630 Bedside Blood Glucose 189 mg/dl H 03/23/18 2131 Eleazar Camarena MD Mar 24, 2018 13:28
[2018-03-24 16:00] VITALS: BP 125/70
[2018-03-24 20:00] VITALS: BP 149/73
[2018-03-24] MEDS ORDERED: Levemir Flexpen SUBQ SCH (21:00)
[2018-03-24] MEDS: Zolpidem 5mg tab ORAL PRN (21:35)
[2018-03-25] VITALS: BP 133/67
[2018-03-25 04:00] VITALS: BP 137/71
[2018-03-25 05:34] LABS: BASOPHILS % (AUTO) 1.1 % (0.0-2.0); EOSINOPHILS % (AUTO) 3.4 % (0.0-3.0); HEMATOCRIT 29.5 % (37.0-47.0); LYMPHOCYTES % (AUTO) 8.2 % (20.0-45.0); MEAN CORPUSCULAR VOLUME 84 FL (80-99); MONOCYTES % (AUTO) 9.9 % (1.0-10.0); NEUTROPHILS % (AUTO) 77.4 % (45.0-75.0); PLATELET COUNT 220 K/UL (150-450); RED BLOOD COUNT 3.51 M/UL (4.20-5.40); RED CELL DISTRIBUTION WIDTH 11.8 % (11.6-14.8); WHITE BLOOD COUNT 14.6 K/UL (4.8-10.8)
[2018-03-25 06:06] LABS: ANION GAP 9 mmol/L (5-15); BLOOD UREA NITROGEN 14 mg/dL (7-18); CALCIUM 8.6 MG/DL (8.5-10.1); CARBON DIOXIDE 19 MMOL/L (21-32); CHLORIDE 104 MMOL/L (98-107); CREATININE 1.4 MG/DL (0.55-1.30); SODIUM 132 MMOL/L (136-145)
[2018-03-25] MEDS: Levothyroxine 125mcg tab ORAL SCH (06:17)
[2018-03-25] MEDS: NS w/KCl 20mEq 1,000 ML IV SCH (06:21)
[2018-03-25] MEDS: NovoLOG Insulin Flexpen SUBQ SCH ×2 (06:23→06:24)
[2018-03-25] MEDS: Ciprofloxacin 500mg tab ORAL SCH (08:11)
[2018-03-25] MEDS: metroNIDAZOLE 250mg tab ORAL SCH (08:11)
[2018-03-25 08:16] VITALS: BP 123/77
[2018-03-25] MEDS ORDERED: METRONIDAZOLE250 MG ORAL (08:49)
[2018-03-25] MEDS ORDERED: CIPROFLOXACIN500 MG PO (08:49)
--- NOTE | 2018-03-25 08:49 | General Progress Note ---
Progress Note Progress Note AVSS doing well now, intubating without any difficulty Abdomen soft, protruberant Urine 2620 BCIR ileo 930 WBC down 14,600 Na 132 stable Cr down 1.4 Imp. Pouchitis, resolving on Cipro and Flagyl Plan; Discharge continue cipro and flagyl through 03/28 instructions/supplies provided/discussed f/u 1 week and prn Joss Ha MD Mar 25, 2018 08:49
--- NOTE | 2018-03-26 15:18 | Discharge Summary ---
Discharge Summary Hospital Course Date of Admission Mar 20, 2018 at 08:52 Date of Discharge Mar 25, 2018 at 09:50 Admitting Diagnosis Malfunctioning Gandhi continent ileostomy Reason for Hospitalization: elective surgery HPI Alfonzo Jimenez is a 72 year old female who was admitted on Mar 20, 2018 at 08:52 for Malfunctioning Gandhi Pouch. 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 Hospital Course 03/20 s/p Gandhi continent ileostomy pouch endoscopy Malfunctioning Gandhi continent ileostomy with difficulty intubating, abd distention , chronic peristomal skin changes, likely Vitamin K deficiency with prolonged INR s/p started IV fluids with NS Continuous drainage of Gandhi pouch Vit. K 10mg IV x1 surgery cancelled ( planned for am) 03/21 - tolerated CL diet continue IVF, monitor Na monitor outputs CT scan A/P - Continent ileostomy noted. No complications such as bowel obstruction or leak identified. 6.5 x 4.3 x 5 cm well-circumscribed cyst posterior pelvic region most likely ovarian cyst. Atherosclerotic disease. Slight nodularity of the gallbladder wall with suggestion of a calcification. Findings probably indicative of cholesterolosis of the gallbladder. Basilar atelectasis. Small right renal cyst. Tiny nonobstructive stone in the left kidney. 03/22/ BCIR diet and indwelling BCIR catheter. Tolerates deit Abdomen soft Na still low 132, but improving BUN 11 Cr 1.4 Begin RN supervised BCIR self-intubations q3h am to hs and prn continue NS IV to correct low sodium level 03/23 intubated well but having high volume watery effluent from Kock pouch, and must intubate q3h even during the night Abdomen more distended and tympanic WBC 11,800 hgb 10.4 Na up 133 Likely Pouchitis with high volume ileostomy output Add Cipro 500mg po q12h , continue Flagyl continue IV fluids 03/24 doing well , intubating without any difficulty abdomen soft, Na 132 stable Cr down 1.4 WBC with trend down abx ( cipto and Flagyl) surgeon cleared for dc endo seen upon admission [id number] but BS consistently elevated anti-glycemic regimen optimized as per endo: long acting Levemir, short acting premeal Novolog and SS of insulin prn regimen further titrated as needed TFT WNL, continue current dose of Levothyroxine replacement continue Cipro and Flagyl through 03/28 instructions/supplies provided/discussed f/u 1 week and prn with dr Ha FINAL DIAGNOSES 1. Malfunctioning Gandhi continent ileostomy with difficulty with intubation and prior episode of bleeding. 2. History of ulcerative colitis. 3. Status post multiple abdominal operations. 3.1. Proctocolectomy and ileostomy in 1970. 3.2. Gandhi continent ileostomy in 1990. 3.3. Laparotomy with complex revision of Gandhi pouch stoma and access segment for redundant access segment in 2006. 3.4. Chronic peristomal skin changes. 4. s/p Gandhi continent ileostomy pouch endoscopy 5. DM 6. Hypothyroidism 7. Hyponatremia with mild dehydration 8. Pouchitis with high volume ileostomy output Discharge Medications Continued Medications: Aspirin (Aspirin) 81 Mg Tab.chew 81 MG PO DAILY, TAB (This prescription has been renewed) Atenolol* (Tenormin*) 50 Mg Tablet 50 MG ORAL BID, TAB (This prescription has been renewed) Ciprofloxacin/Ciprofloxa Hcl (Ciprofloxacin Er 500 Mg Tablet) 500 Mg Tbmp.24hr 500 MG PO Q12HR, TAB (This prescription has been renewed) Ezetimibe (Zetia*) 10 Mg Tablet 10 MG ORAL DAILY, TAB (This prescription has been renewed) Fenofibrate (Fenofibrate) 54 Mg Tablet 54 MG ORAL DAILY, #30 TAB 0 Refills (This prescription has been renewed) Ferrous Sulfate (Iron) 325 Mg Tablet 65 MG PO, TAB (This prescription has been renewed) Insulin Glargine (Lantus) 100 Unit/1 Ml Vial 0 SUBQ BEDTIME, #1 EA 0 Refills (This prescription has been renewed) Insulin Regular, Human (Humulin R) 100 Unit/1 Ml Vial 0 SUBQ, VIAL (This prescription has been renewed) Levothyroxine Sodium (Synthroid) 200 Mcg Tablet 225 MCG ORAL DAILY, TAB (This prescription has been renewed) Take in the morning on an empty stomach, at least 30 minutes before food. Metoclopramide Hcl* (Reglan*) 10 Mg Tablet 10 MG ORAL BID, TAB (This prescription has been renewed) Metronidazole* (Flagyl*) 250 Mg Tablet 250 MG ORAL EVERY 8 HOURS, TAB 0 Refills (This prescription has been renewed) Mu-Vits-Min /Lycopene/Lutein (Centrum Silver Tablet) 1 Each Tablet 1 EACH PO, TAB (This prescription has been renewed) Omeprazole (Omeprazole) 20 Mg Capsule.dr 20 MG ORAL BID, CAP (This prescription has been renewed) Zolpidem Tartrate* (Ambien*) 10 Mg Tablet 10 MG ORAL HS PRN for Insomnia, TAB (This prescription has been renewed) Discharge Condition Upon Discharge: stable Discharge Disposition Patient was discharged to Home () Discharge Instructions Discharge Instructions Special Instructions I have been assigned to complete a D/C Summary on this account. I was not involved in the patient management Martha Mattson NP Mar 26, 2018 15:18
== END 2018-03-25 09:50 | disposition home or self-care (01) | DRG 394 ==
LOC: 3E 08:52
PROC: 0DJD8ZZ Inspection of Lower Intestinal Tract, Via Natural or Artificial Opening Endoscopic (ICD-10-PCS; principal; 2018-03-20 13:35)
DX: K94.13 Enterostomy malfunction (principal); K83.0 Cholangitis; K91.850 Pouchitis; Y83.3 Surgical operation with formation of external stoma as the cause of abnormal reaction of the patient, or of later complication, without mention of misadventure at the time of the procedure; E11.9 Type 2 diabetes mellitus without complications; I25.10 Atherosclerotic heart disease of native coronary artery without angina pectoris; E03.9 Hypothyroidism, unspecified; Z79.4 Long term (current) use of insulin; I48.2 Chronic atrial fibrillation; I11.0 Hypertensive heart disease with heart failure; I50.9 Heart failure, unspecified; Z95.1 Presence of aortocoronary bypass graft; E11.65 Type 2 diabetes mellitus with hyperglycemia; Z87.19 Personal history of other diseases of the digestive system; Z88.8 Allergy status to other drugs, medicaments and biological substances; E86.0 Dehydration
CPT/HCPCS: 36415; 71045; 74177; 80048; 80053; 81001; 82962; 83036; 84439; 84443; 85025; 85610; 85730; 86850; 86900; 86901; 87324; J1815; S5561